=== PATIENT | female | born 1950 | race Caucasian/White ===

== ENCOUNTER 2017-01-11 05:40 | Inpatient (IN) | payer OTHER ==
[2016-12-27 13:10] LABS: HEMATOCRIT 39.1 % (37.0-47.0); HEMOGLOBIN 12.6 gm/dL (12.0-15.0); MCH 27.1 pg (26.0-34.0); MCHC 32.3 g/dL (28.0-37.0); MCV 83.9 fL (80.0-100.0); RBC 4.65 mil/uL (4.20-5.00); RDW 14.8 % (10.5-14.5)
[2016-12-27 13:19] LABS: ALBUMIN 3.8 g/dL (3.4-5.0); CALCIUM 9.6 mg/dL (8.5-10.1); POTASSIUM 4.2 mmol/L (3.5-5.1)
[2016-12-27 13:22] LABS: INR 1.1; PROTIME 10.9 Seconds (9.3-11.4)
[2016-12-27 13:59] LABS: URINE BILIRUBIN NEGATIVE (Negative); URINE BLOOD NEGATIVE (Negative); URINE COLOR YELLOW; URINE GLUCOSE-RANDOM* NEGATIVE (Negative); URINE KETONES TRACE (Negative); URINE LEUKOCYTES-REFLEX NEGATIVE (Negative); URINE PROTEIN (DIPSTICK) TRACE (Negative); URINE SPECIFIC GRAVITY 1.025 (1.003-1.035); URINE UROBILINOGEN 0.2 E.U./dl (0.2-1.0)
[~2017-01-11] VITALS: Ht 172.7 cm; Wt 94.3 kg
--- NOTE | ~2017-01-11 | O ---
[facility] [place] [address] OPERATIVE REPORT Name: JOHNY POWELL Room #: 547-P ADM IN M.R.#: [id number] Admission: 01/11/17 Attend Phys: Shay Velásquez MD Discharge: Date of : 50 Report #: [id number] THIS REPORT FOR: //name// CC: Morenita Watt DATE OF SERVICE: 01/11/2017 PREOPERATIVE DIAGNOSIS: Right knee degenerative joint disease, severe. POSTOPERATIVE DIAGNOSIS: Right knee degenerative joint disease, severe. PROCEDURE: Right total knee arthroplasty. SURGEON: Shay Velásquez MD. TAR KETTLE RUNNER: Rayray Hannon, nurse practitioner. INDICATIONS FOR TAR KETTLE RUNNER: During the course of operation, extensive manipulation, retraction, and limb positioning was required. This was afforded to me by my virtual assistant for advertisers. ANESTHESIA: General. INDICATIONS: See hospital H and P revisions, 01/11/2017. IMPLANTS UTILIZED: We used a DePuy PFC knee system. We used size 4 narrow press-fit cruciate-retaining femoral component, size 3 tibial tray with a 10 mm insert and a 38 mm oval dome patella. DESCRIPTION OF PROCEDURE: After adequate general anesthesia had been obtained, the patient's right lower extremity was prepped and draped in the usual meticulous sterile fashion. Limb was exsanguinated with gravity. Tourniquet was inflated to 350 torr. An anterior midline incision was made. SubQ divided sharply. Hemostasis was obtained with electrocautery. Medial parapatellar incision was made. Infrapatellar fat pad excised. Medial release performed. The drill was used to drill the distal femur. This hole was enlarged, irrigated, suctioned, and the intramedullary guide placed the full length of the femur. Distal femoral cutting guide pinned to the appropriate height. Distal femoral cut was made. The measuring device determined the size 4 as appropriate size for this patient. We marked the distal femur, impacted the cutting guide into place and the anterior, posterior, and chamfer cuts were made. Rongeur was used to remove additional osteophytes. At this time, the ACL was transected. The tibia translated anteriorly, and the [facility] [address] [place] [address] OPERATIVE REPORT Name: JOHNY POWELL Room #: 547-P ADM IN M.R.#: [id number] Admission: 01/11/17 Attend Phys: Shay Velásquez MD Discharge: Date of : 50 Report #: [id number] menisci were excised. A drill was used to drill the central portion of the tibia. This hole was enlarged, irrigated, suctioned, and the intramedullary guide placed the full length of the tibia. Proximal tibial cutting guide placed at appropriate height. Proximal tibia cut was made. 3 tray gave us the best coverage on the tibia. We put the trial components in position. With a 10 spacer, she had the best flexion and extension gap. Patella tracked normally. Patella was measured. It was quite thin due to erosion. We made the patellar cut. 38 template gave us the best coverage. Pedicles were drilled. Trial components were put in position. It tracked normally. At this time, the knee was taken through several cycles of flexion and extension. The tibial tray rotation was marked. Distal femur drilled. Trial components were removed. The tibial keel cuts were made. The knee was irrigated with both pulse lavage and antibiotic irrigation. Bone plugs were placed in the proximal tibia and distal femur. The cement was vacuum mixed, and when it reached the appropriate consistency, the knee was thoroughly dried, the tibial tray was cemented in to place. Excess cement was removed. The polyethylene was impacted in to place and the femur impacted in to place, and the knee was taken out to 30 degrees of flexion with the uniform compression placed across the components. Patellar button was then cemented into place, and again excess cement was removed. The knee was taken out to 30 degrees of flexion and uniform compression placed across the components. Irrigation was placed in the wound and allowed to rest in the wound until the cement fully cured. When it had done so, the knee was irrigated, dried thoroughly, and inspected. Drains were placed superolaterally both deep and superficial. The retinacular layer closed with the combination of an interrupted [id number] #1 Vicryl, as well as running #1 Tevdek. SubQ closed with 2-0 Monocryl, skin closed with denisha. Sterile compressive was complied. Tourniquet was deflated. <ELECTRONICALLY SIGNED> By: Shay Velásquez MD 01/14/17 [id number] Shay Velásquez MD /nt
[~2017-01-11 05:40] MED LIST: ARICEPT 5 MG TAB5 MG PO; CELEBREX 200 M200 M1 PO; CYMBALTA30 MG PO; LEVOTHYROXINE0.2 M1 PO; LIPITOR20 MG PO; NAMENDA 10 MG T10 MG PO; TRAMADOL 50 MG50 MG PO; TYLENOL325 MG PO
[2017-01-11 09:44] VITALS: BP 115/72
[2017-01-11 12:10] VITALS: BP 96/75
[2017-01-11 13:00] VITALS: BP 115/68
[2017-01-11 14:00] VITALS: BP 121/55
[2017-01-11 15:34] VITALS: BP 95/78
[2017-01-11 20:00] VITALS: BP 103/65
[2017-01-12] VITALS: BP 130/47
[2017-01-12 04:00] VITALS: BP 106/51
[2017-01-12 05:35] LABS: HEMATOCRIT 30.9 % (37.0-47.0); HEMOGLOBIN 10.4 gm/dL (12.0-15.0); MCH 27.7 pg (26.0-34.0); MCHC 33.5 g/dL (28.0-37.0); MCV 82.7 fL (80.0-100.0); RBC 3.73 mil/uL (4.20-5.00); RDW 14.5 % (10.5-14.5); WBC 6.2 thou/uL (4.0-11.0)
[2017-01-12 07:36] VITALS: BP 100/60
[2017-01-12 16:16] VITALS: BP 109/45
[2017-01-12 20:00] VITALS: BP 106/56
[2017-01-13 04:10] VITALS: BP 107/59
[2017-01-13 06:33] LABS: HEMATOCRIT 30.6 % (37.0-47.0); HEMOGLOBIN 10.1 gm/dL (12.0-15.0); MCH 27.6 pg (26.0-34.0); MCHC 32.9 g/dL (28.0-37.0); MCV 83.9 fL (80.0-100.0); RBC 3.65 mil/uL (4.20-5.00); RDW 14.6 % (10.5-14.5); WBC 5.5 thou/uL (4.0-11.0)
[2017-01-13] MEDS ORDERED: PERCOCET 10-321 EACH PO (07:17)
[2017-01-13] MEDS ORDERED: XARELTO10 MG PO (07:17)
[2017-01-13 07:30] VITALS: BP 131/58
[2017-01-13 15:35] VITALS: BP 112/55
[2017-01-13 20:00] VITALS: BP 117/65
[2017-01-14 04:00] VITALS: BP 123/57
[2017-01-14 05:52] LABS: HEMATOCRIT 29.8 % (37.0-47.0); HEMOGLOBIN 9.8 gm/dL (12.0-15.0); MCH 27.6 pg (26.0-34.0); MCHC 32.9 g/dL (28.0-37.0); RBC 3.55 mil/uL (4.20-5.00); RDW 14.6 % (10.5-14.5); WBC 4.8 thou/uL (4.0-11.0)
[2017-01-14 08:56] VITALS: BP 123/57
[2017-01-14 10:08] VITALS: BP 98/50
[2017-01-14 12:27] VITALS: BP 123/57
== END 2017-01-14 15:00 | disposition home health service (06) | DRG 470 ==
LOC: 5S 05:40 → TBA 05:40 → PRE 08:16 → 5S 11:50 → PRE 12:39 → 5S 01-14 15:00
PROVIDERS: Orthopaedic Surgery
PROC: 0SRC0J9 Replacement of Right Knee Joint with Synthetic Substitute, Cemented, Open Approach (ICD-10-PCS; principal; 2017-01-11)
DX: M17.11 Unilateral primary osteoarthritis, right knee (principal); E03.9 Hypothyroidism, unspecified; E78.5 Hyperlipidemia, unspecified; F03.90 Unspecified dementia, unspecified severity, without behavioral disturbance, psychotic disturbance, mood disturbance, and anxiety
CPT/HCPCS: 10785; 50010; 50101; 50415; 50954; 51130; 51225; 51320; 51412; 51771; 52001; 52282; 53000; 53078; 53364; 56525; 56527; 62110; 62850; 64042; 64043; 65085; 70005

== ENCOUNTER → 2018-04-03 | Outpatient (CLI) | payer OTHER ==
[~2018-04-03] MED LIST changes: +PERCOCET 10-321 EACH PO; +XARELTO10 MG PO
== END ==
LOC: RAD 11:51
DX: Z12.31 Encounter for screening mammogram for malignant neoplasm of breast (principal)

== ENCOUNTER → 2018-04-10 | Outpatient (CLI) | payer OTHER | LOC: ULTRA 10:05 | DX: N63.10 Unspecified lump in the right breast, unspecified quadrant (principal) ==

== ENCOUNTER → 2019-01-04 | Outpatient (CLI) | payer OTHER | LOC: ULTRA 00:57 | DX: N60.01 Solitary cyst of right breast (principal); Z98.890 Other specified postprocedural states ==